=== PATIENT | female | born 1985 | race Caucasian/White ===

== ENCOUNTER 2025-08-05 21:19 | Emergency (ER) | payer OTHER ==
[~2025-08-05] VITALS: Ht 160 cm; Wt 94.9 kg
[~2025-08-05 21:19] MED LIST: CYCLOBENZAPRINE10 MG PO; LIDODERM1 EACH TOP
[2025-08-05] MEDS ORDERED: JARDIANCE10 MG PO (21:34)
[2025-08-05] MEDS ORDERED: OZEMPIC1 MG/0.71 SQ (21:35)
[2025-08-05] MEDS ORDERED: ROSUVASTATIN CA10 MG PO (21:35)
[2025-08-05] MEDS ORDERED: LIDOCAINE HCL 4% 1 EACH PATCH TD ONE (22:45)
[2025-08-05] MEDS ORDERED: KETOROLAC TROMETHAMINE 30 MG/ML VIAL IM ONE (22:45)
[2025-08-05] MEDS ORDERED: CYCLOBENZAPRINE HCL 10 MG TAB PO ONE (22:45)
[2025-08-05 23:43] LABS: BLOOD/HGB, URINE LARGE (Negative); KETONE, URINE TRACE (Negative); LEUK ESTERASE, URINE NEGATIVE (negative); NITRITE, URINE NEGATIVE (negative)
[2025-08-05] MEDS ORDERED: CYCLOBENZAPRINE HCL 10 MG HOME.PACK PO ONE (23:45)
[2025-08-05 23:51] LABS: EPITHELIAL CELLS, URINE SQUAMOUS 1+ /lpf (0-1+)
[2025-08-05 23:52] LABS: BACTERIA, URINE RARE /hpf (negative); CASTS, URINE NONE SEEN \\lpf; CRYSTALS, URINE NONE SEEN (0-1+); REFLEX CULTURE, URINE No (No)
[2025-08-06 00:22] VITALS: BP 94/74
[2025-08-06] MEDS ORDERED: LIDOCAINE PATCH REMOVAL 1 EA TD SCH (21:00)
== END 2025-08-06 00:22 | disposition home or self-care (01) ==
LOC: ED 21:19
PROVIDERS: Internal Medicine
DX: M62.830 Muscle spasm of back (principal); E11.9 Type 2 diabetes mellitus without complications; Z79.899 Other long term (current) drug therapy
CPT/HCPCS: 81001; 96372; 99283; A9270; J1885